=== PATIENT | female | born 1995 | race Caucasian/White ===

== ENCOUNTER 2017-05-27 21:46 | Emergency (ER) ==
[2017-05-27 21:55] VITALS: BP 109/69; TEMP 99.5; BMI 25.0
[2017-05-27] MEDS ORDERED: MOTRIN PO STA (22:06)
[2017-05-27] MEDS ORDERED: LIDOCAINE HCL 1% SDV SUBCUT STA (22:06)
[2017-05-27] MEDS ORDERED: ROCEPHIN IM STA (22:06)
--- NOTE | 2017-05-27 22:10 | ED.PDOC ---
General ED Provider: Dr. ERIC NUÑEZ Chief Complaint: Breast Pain Stated Complaint: Patient had baby last week, she is breast feeding. started noticing some pain 2-3 days, pain is gradually increasing. Time Seen by Physician: 22:08 Mode of Arrival: Walk-In Information Source: Patient Primary Care Provider: LESTER JULIO Nursing and Triage Documentation Reviewed and Agree: Yes Skin Complaint Exam - Skin/Soft Tissue Complaint/Exam Symptoms Are: Still present Timing: Constant Initial Severity: Moderate Current Severity: Moderate Character: Reports: Redness, Swelling (rt breast), Raised, Painful Aggravating: Reports: Touch Alleviating: Reports: None Associated Signs and Symptoms: Reports: Tenderness, Red streaks. Denies: Fever , Chills, Itching, Drainage, Bruising, Joint swelling Related Surgical History: Reports: None Recent Exposure to Others w/Similar Symptoms: No Skin Findings: Present: Erythema, Induration, Fluctuant mass Differential Diagnoses: Abscess, Cellulitis, Lymphadenitis Review of Systems - Review Of Systems Constitutional: Reports: No symptoms Eyes: Reports: No symptoms Ears, Nose, Mouth, Throat: Reports: No symptoms Respiratory: Reports: No symptoms Cardiac: Reports: No symptoms GI: Reports: No symptoms : Reports: No symptoms Musculoskeletal: Reports: No symptoms Skin: Reports: No symptoms Neurological: Reports: No symptoms Endocrine: Reports: No symptoms Hematologic/Lymphatic: Reports: No symptoms All Other Systems: Reviewed and Negative Past Medical History - Past Medical History Previously Healthy: Yes Endocrine: Reports: None Cardiovascular: Reports: Other (vasosyncope) Respiratory: Reports: None Hematological: Reports: None Gastrointestinal: Reports: None, GERD Genitourinary: Reports: None Neuro/Psych: Reports: Anxiety, Depression Musculoskeletal: Reports: None Cancer: Reports: None Last Menstrual Period: PT IS 8 DAYS POST Other Pertinent Past Medical History: VASOVAGAL SYNCOPE HYPOGLYCEMIA - Surgical History General Surgical History: Reports: Unknown - Family History Family History: Reports: Unknown - Social History Smoking Status: Current every day smoker, Light tobacco smoker Smoking Cessation Counseling Time: > 3 min - 10 min Hx Substance Use: No Alcohol Screening: None - Immunizations Tetanus Shot up to Date: Yes Physical Exam - Physical Exam Appearance: Ill-appearing Eyes: STEVE, EOMI, Conjunctiva clear ENT: Ears normal, Nose normal, Oropharynx normal Respiratory: Airway patent, Breath sounds clear, Breath sounds equal, Respirations nonlabored Cardiovascular: RRR, Pulses normal, No rub, No murmur GI/: Soft, Nontender, No masses, Bowel sounds normal, No Organomegaly Musculoskeletal: Normal strength, ROM intact, No edema, No calf tenderness Skin: Warm (rt breast small mass 1 o clock position. tender all over the right breast.), Dry, Normal color Neurological: Sensation intact, Motor intact, Reflexes intact, Cranial nerves intact, Alert, Oriented Psychiatric: Affect appropriate, Mood appropriate Critical Care Note - Critical Care Note Total Time (mins): 0 Course - Course Orders, Labs, Meds: Orders Category Date Time Status Ceftriaxone Sodium [Rocephin] MEDS 05/27/17 22:06 Stat 1 gm IM ONCE STA Ibuprofen [Motrin] MEDS 05/27/17 22:06 Stat 600 mg PO ONCE STA Lidocaine HCl/Pf [Lidocaine HCl 1% Sdv] MEDS 05/27/17 22:06 Stat 5 ml SUBCUT ONCE STA Medications Discontinued Medications Generic Name Dose Route Start Last Admin Trade Name Freq PRN Reason Stop Dose Admin Ceftriaxone Sodium 1 gm 05/27/17 22:06 Rocephin IM 05/27/17 22:07 ONCE STA Ibuprofen 600 mg 05/27/17 22:06 Motrin PO 05/27/17 22:07 ONCE STA Lidocaine HCl 5 ml 05/27/17 22:06 Lidocaine Hcl 1% Sdv SUBCUT 05/27/17 22:07 ONCE STA Vital Signs: Temp Pulse Resp BP Pulse Ox 05/27/17 21:46 99.5 F 107 H 18 109/69 98 Departure - Departure Time of Disposition: 22:13 Disposition: HOME SELF-CARE Discharge Problem: Mastitis Instructions: Mastitis (ED) Condition: Good Pt referred to PMD for follow-up: Yes Additional Instructions: hot compress. u/s in am. Ibuprofen prn with food. f/u in C am Prescriptions: Amoxicillin/Potassium Clav [Augmentin 500-125 mg Tab] 1 tab PO Q12HR #20 tablet Allergies/Adverse Reactions: Allergies No Known Allergies Allergy (Verified 05/27/17 21:55) Home Medications: Ambulatory Orders Amoxicillin/Potassium Clav [Augmentin 500-125 mg Tab] 1 tab PO Q12HR #20 tablet 05/27/17 Cyclobenzaprine HCl [Flexeril] 10 mg PO BID PRN 05/27/17 Pnv No.95/Ferrous Fum/Folic AC [ Vitamin Tablet] 1 each PO DAILY Disposition Discussed With: Patient
== END 2017-05-27 22:45 | disposition home or self-care (01) ==
LOC: ED 21:46
DX: N61.0 Mastitis without abscess (principal); F17.210 Nicotine dependence, cigarettes, uncomplicated
CPT/HCPCS: 96372; 99282

== ENCOUNTER 2017-10-20 16:09 | Emergency (ER) | payer OTHER ==
[2017-10-20 16:18] VITALS: BP 115/78; TEMP 98.9; BMI 24.1
--- NOTE | 2017-10-20 16:57 | ED.PDOC ---
General ED Provider: Dr. JAVAN STEWART Chief Complaint: Stated Complaint: Patient presents with complaints of lower abdominal and pelvic cramping. States she is curently -LMP 08/24/17. Is G5P 2 A2. STATES SHE HAD VAGINAL SPOTTING LAST WEEK FOR 1-2 DAYS THEN RESOLVED. NO SPOTTING TODAY. States she started having cramping to abdomen and low back at 0730 lasting until noon. Started again about 3pm. Has tried getting off feet, drinking water and a hot bath. Has not seen OB dr yet but has a 5 month old at home and will have an appt with same OB dr end of next week. Time Seen by Physician: 16:20 Mode of Arrival: Walk-In Information Source: Patient Exam Limitations: No limitations Primary Care Provider: LESTER JULIO Nursing and Triage Documentation Reviewed and Agree: Yes Reviewed sepsis parameters & appropriate labs ordered?: Yes System Inflammatory Response Syndrome: Not Applicable Sepsis Protocol: For patient's 13 years and over: Temp is 96.8 and below OR 101 and greater Pulse >90 BPM Resp >20/minute Acutely Altered Mental Status Are patient's symptoms suggestive of a new infection, such as: -Pneumonia -Skin, Soft Tissue -Endocarditis -UTI -Bone, Joint Infection -Implantable Device -Acute Abdominal Infection -Wound Infection -Meningitis -Blood Stream Catheter Infection -Unknown System 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 Denies: Dizziness, Lightheadedness, Pale, UTI symptoms, Abdominal pain, Generalized pain Related History: Reports: Irregular menses, Recent + test : 5 Para: 2 Hx Total # of Abortions (Spontaneous & Elective): 2 Ectopic Risk Factors: Reports: None Spontaneous AB Risk Factors: Reports: Increased parity Abdominal Findings: Present: None Review of Systems - Review Of Systems Constitutional: Reports: No symptoms Eyes: Reports: No symptoms Ears, Nose, Mouth, Throat: Reports: No symptoms Respiratory: Reports: No symptoms Cardiac: Reports: No symptoms GI: Reports: No symptoms : Reports: No symptoms, Other (LOWER ABDOMINAL CRAMPING) Musculoskeletal: Reports: No symptoms Skin: Reports: No symptoms Neurological: Reports: No symptoms Endocrine: Reports: No symptoms Hematologic/Lymphatic: Reports: No symptoms All Other Systems: Reviewed and Negative Past Medical History - Past Medical History Previously Healthy: Yes Endocrine: Reports: None Cardiovascular: Reports: Other (vasosyncope) Respiratory: Reports: None Hematological: Reports: None Gastrointestinal: Reports: None, GERD Genitourinary: Reports: None Neuro/Psych: Reports: Anxiety, Depression Musculoskeletal: Reports: None Cancer: Reports: None Last Menstrual Period: 08/24/17 Other Pertinent Past Medical History: VASOVAGAL SYNCOPE HYPOGLYCEMIA - Surgical History General Surgical History: Reports: Unknown - Family History Family History: Reports: Unknown - Social History Smoking Status: Current every day smoker, Light tobacco smoker Hx Substance Use: No Alcohol Screening: None Physical Exam - Physical Exam Appearance: Well-appearing, No pain distress, Well-nourished Eyes: STEVE, EOMI, Conjunctiva clear ENT: Ears normal, Nose normal, Oropharynx normal Respiratory: Airway patent, Breath sounds clear, Breath sounds equal, Respirations nonlabored Cardiovascular: RRR, Pulses normal, No rub, No murmur GI/: Soft, Nontender, No masses, Bowel sounds normal, No Organomegaly Musculoskeletal: Normal strength, ROM intact, No edema, No calf tenderness Skin: Warm, Dry, Normal color Neurological: Sensation intact, Motor intact, Reflexes intact, Cranial nerves intact, Alert, Oriented Psychiatric: Affect appropriate, Mood appropriate Critical Care Note - Critical Care Note Total Time (mins): 0 Course - Course Hematology/Chemistry: 10/20/17 17:18 10/20/17 17:18 Orders, Labs, Meds: Lab Review 10/20/17 10/20/17 10/20/17 17:18 17:18 17:18 WBC 9.62 RBC 4.11 L Hgb 12.5 Hct 36.3 L MCV 88.3 MCH 30.4 MCHC 34.4 RDW Coeff of Woody 12.9 Plt Count 231 Immature Gran % (Auto) 0.4 Neut % (Auto) 65.0 Lymph % (Auto) 24.9 Colbert % (Auto) 6.2 Eos % (Auto) 2.9 Baso % (Auto) 0.6 Immature Gran # (Auto) 0.0 Neut # (Auto) 6.2 Lymph # (Auto) 2.4 Colbert # (Auto) 0.6 Eos # (Auto) 0.3 Baso # (Auto) 0.1 Sodium 139 Potassium 4.2 Chloride 108 H Carbon Dioxide 22 Anion Gap 13.2 BUN 7 Creatinine 0.60 Estimated GFR (MDRD) 129.00 BUN/Creatinine Ratio 11.66 Glucose 84 Calcium 8.9 HCG, Quant 06642.90 Direct Antiglob Test 10/20/17 17:18 WBC RBC Hgb Hct MCV MCH MCHC RDW Coeff of Woody Plt Count Immature Gran % (Auto) Neut % (Auto) Lymph % (Auto) Colbert % (Auto) Eos % (Auto) Baso % (Auto) Immature Gran # (Auto) Neut # (Auto) Lymph # (Auto) Colbert # (Auto) Eos # (Auto) Baso # (Auto) Sodium Potassium Chloride Carbon Dioxide Anion Gap BUN Creatinine Estimated GFR (MDRD) BUN/Creatinine Ratio Glucose Calcium HCG, Quant Direct Antiglob Test Negative Orders Category Date Time Status BMP [BASIC METABOLIC PANEL] Stat LAB 10/20/17 17:18 Completed CBC W/ AUTO DIFF Stat LAB 10/20/17 17:18 Completed DIRECT MONICA Stat LAB 10/20/17 17:18 Completed HCG,QUANTITATIVE Stat LAB 10/20/17 17:18 Completed Vital Signs: Temp Pulse Resp BP Pulse Ox 10/20/17 16:10 98.9 F 99 H 18 115/78 99 Departure - Departure Time of Disposition: 18:20 Disposition: HOME SELF-CARE Discharge Problem: First trimester , Hx of vaginal bleeding, Multiparity, Rh negative state in antepartum period Instructions: (ED), Threatened Miscarriage (ED) Condition: Good Pt referred to PMD for follow-up: Yes (CALL YOUR OB TOMORROW FOR AN APPOINTMENT AMD EVALUATION ) IPMP verified?: No Additional Instructions: hcg WAS 89, 251 CONSISTENT WITH EARLY AT 5-6 WEEKS GESTATION REMAIN AT PELVIC REST 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
== END 2017-10-20 19:16 | disposition home or self-care (01) ==
LOC: ED 16:09
DX: O20.0 Threatened abortion (principal); O36.0110 Maternal care for anti-D [Rh] antibodies, first trimester, not applicable or unspecified; F17.210 Nicotine dependence, cigarettes, uncomplicated
CPT/HCPCS: 36415; 80048; 84702; 85025; 86880; 99283

== ENCOUNTER 2018-05-09 14:32 | Outpatient (CLI) | END 2018-05-09 14:49 | disposition short-term general hospital (02) | LOC: AMBL 14:32 | PROVIDERS: ATTEND Emergency Medicine | DX: O60.03 Preterm labor without delivery, third trimester (principal) ==

== ENCOUNTER 2018-05-23 08:49 | Outpatient (CLI) | END 2018-05-23 09:04 | disposition short-term general hospital (02) | LOC: AMBL 08:49 | PROVIDERS: ATTEND Emergency Medicine | DX: O80 Encounter for full-term uncomplicated delivery (principal) ==

== ENCOUNTER 2018-07-20 20:41 | Emergency (ER) ==
[2018-07-20 20:51] VITALS: BP 99/69; TEMP 98.9; BMI 22.8
--- NOTE | 2018-07-20 22:05 | CT ---
EXAM: CT abdomen and pelvis without contrast. HISTORY: Pelvic pain TECHNIQUE: Multi-slice transaxial helical CT. Coronal and sagittal reformatons were performed. COMPARISON: None FINDINGS: The heart is normal in size. Multi focal patchy airspace opacities are seen in lung bases. A a conf luent wedge-shaped consolidation is seen within the medial right lower lobe. Evaluation of the solid organs is limited without IV contrast. The gallbladder appears partly contra cted. The spleen is normal in size. No hydronephrosis or renal calculus is seen. No intrahepatic b iliary ductal dilation is seen. The pancreas and the bilateral adrenal glands appear grossly unremar kable within the confines of a noncontrast exam. The bowel is not dilated. The appendix appears normal. Urinary bladder and the uterus appear grossl y unremarkable. No definite pelvic free fluid is seen. Evaluation of the bowel is limited without o ral contrast and relatively low intra-abdominal fat. Osseous structures appear grossly unremarkable. IMPRESSION: 1. Bibasilar patchy airspace opacities and right lung base consolidation compatible with pneumonia. 2. No acute intra-abdominal findings. 3. Limited exam without contrast.
--- NOTE | 2018-07-20 22:06 | ED.PDOC ---
General ED Provider: Dr. JAVAN CARRASCO-ER Chief Complaint: Vaginal Bleeding Stated Complaint: i think i might have a tampon still in0--its draining and it stinks Time Seen by Physician: 20:45 Mode of Arrival: Walk-In Information Source: Patient Exam Limitations: No limitations Primary Care Provider: LESTER JULIO Nursing and Triage Documentation Reviewed and Agree: Yes Does patient meet sepsis criteria?: No System Inflammatory Response Syndrome: Not Applicable Sepsis Protocol: For patient's 13 years and over: Temp is 96.8 and below OR 101 and greater Pulse >90 BPM Resp >20/minute Acutely Altered Mental Status Are patient's symptoms suggestive of a new infection, such as: -Pneumonia -Skin, Soft Tissue -Endocarditis -UTI -Bone, Joint Infection -Implantable Device -Acute Abdominal Infection -Wound Infection -Meningitis -Blood Stream Catheter Infection -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 Complaint/Exam Onset/Duration: several days Symptoms Are: Still present Initial Severity: Mild Current Severity: Mild Character: Reports: Bright red Associated Signs and Symptoms: Reports: Cramping : 3 Para: 3 Patient Rh Status: Unknown Related Surgical History: Reports: None Abdominal Findings: Present: None Review of Systems - Review Of Systems Constitutional: Reports: No symptoms Eyes: Reports: No symptoms Ears, Nose, Mouth, Throat: Reports: No symptoms Respiratory: Reports: No symptoms Cardiac: Reports: No symptoms GI: Reports: No symptoms : Reports: Pain Musculoskeletal: Reports: No symptoms Skin: Reports: No symptoms Neurological: Reports: No symptoms Endocrine: Reports: No symptoms Hematologic/Lymphatic: Reports: No symptoms All Other Systems: Reviewed and Negative Past Medical History - Past Medical History Previously Healthy: Yes Endocrine: Reports: None Cardiovascular: Reports: Other (vasosyncope) Respiratory: Reports: None Hematological: Reports: None Gastrointestinal: Reports: None, GERD Genitourinary: Reports: None Neuro/Psych: Reports: Anxiety, Depression Musculoskeletal: Reports: None Cancer: Reports: None Last Menstrual Period: now Other Pertinent Past Medical History: VASOVAGAL SYNCOPE HYPOGLYCEMIA - Surgical History General Surgical History: Reports: Unknown - Family History Family History: Reports: Unknown - Social History Smoking Status: Current every day smoker, Light tobacco smoker Hx Substance Use: No Alcohol Screening: None - Immunizations Tetanus Shot up to Date: Yes Physical Exam - Physical Exam Appearance: Well-appearing, No pain distress, Well-nourished Eyes: STEVE ENT: Ears normal, Nose normal, Oropharynx normal Neck: Supple Respiratory: Airway patent, Breath sounds clear, Breath sounds equal, Respirations nonlabored Cardiovascular: RRR, Pulses normal, No rub, No murmur GI/: Soft, Mass (noted retained tampon which was easily retrieved using ring forceps) Musculoskeletal: Normal strength, ROM intact, No edema, No calf tenderness Skin: Warm, Dry, Normal color Neurological: Sensation intact, Motor intact, Reflexes intact, Cranial nerves intact, Alert, Oriented Psychiatric: Affect appropriate, Mood appropriate Procedures - Foreign Body Removal Location of Foreign Object: vaginal Foreign Object: tampon Depth of Object: superficial Type of Anesthesia: None Irrigation: No Skin Incised: No Instruments Used: Yes: Forceps Foreign Body Identified and Removed: Yes Critical Care Note - Critical Care Note Total Time (mins): 0 Course - Course Hematology/Chemistry: 07/20/18 21:14 07/20/18 21:14 Orders, Labs, Meds: Lab Review 07/20/18 07/20/18 07/20/18 21:14 21:14 21:14 WBC 11.06 H RBC 4.72 Hgb 13.6 Hct 39.8 MCV 84.3 MCH 28.8 MCHC 34.2 RDW Coeff of Woody 13.3 Plt Count 335 Immature Gran % (Auto) 0.3 Neut % (Auto) 74.8 Lymph % (Auto) 17.2 Rich % (Auto) 6.4 Eos % (Auto) 0.8 Baso % (Auto) 0.5 Immature Gran # (Auto) 0.0 Neut # (Auto) 8.3 H Lymph # (Auto) 1.9 Rich # (Auto) 0.7 Eos # (Auto) 0.1 Baso # (Auto) 0.1 Sodium 139.5 Potassium 3.72 Chloride 102.7 Carbon Dioxide 27.4 Anion Gap 13.12 BUN 8.9 Creatinine 0.79 Estimated GFR (MDRD) 93.00 BUN/Creatinine Ratio 11.26 Glucose 100.1 Calcium 9.52 Total Bilirubin 0.49 AST 27.2 ALT 27.4 Alkaline Phosphatase 79.5 Total Protein 7.97 Albumin 4.52 Globulin 3.45 Albumin/Globulin Ratio 1.31 Serum , Qual Negative Orders Category Date Time Status CBC W/ AUTO DIFF Stat LAB 07/20/18 21:14 Completed COMPREHENSIVE METABOLIC PANEL Stat LAB 07/20/18 21:14 Completed SERUM Stat LAB 07/20/18 21:14 Completed Ceftriaxone Sodium [Rocephin] MEDS 07/20/18 22:08 Stat 250 mg IM ONCE STA Lidocaine HCl/Pf [Lidocaine HCl 1% Sdv] MEDS 07/20/18 22:08 Stat 0.9 ml IM ONCE STA CT ABDOMEN/PELVIS WO CONTRAST Stat RADS 07/20/18 21:37 Taken Medications Generic Name Dose Route Start Last Admin Trade Name Re PRN Reason Stop Dose Admin Ceftriaxone Sodium 250 mg 07/20/18 22:08 Rocephin IM 07/20/18 22:09 ONCE STA Lidocaine HCl 0.9 ml 07/20/18 22:08 Lidocaine Hcl 1% Sdv IM 07/20/18 22:09 ONCE STA Vital Signs: Temp Pulse Resp BP Pulse Ox 07/20/18 20:42 98.9 F 101 H 18 99/69 98 Departure - Departure Time of Disposition: 22:06 Disposition: HOME SELF-CARE Discharge Problem: Retained tampon Qualifiers: Encounter type: initial encounter Qualified Code(s): T19.2XXA - Foreign body in vulva and vagina, initial encounter Instructions: Vaginal Foreign Body (ED) Condition: Good Pt referred to PMD for follow-up: Yes IPMP verified?: No Additional Instructions: flagyl 250mg tid x 7 days plus minocin 100mg q 12hr s #14---f/u with chocolate dipper Allergies/Adverse Reactions: Allergies No Known Allergies Allergy (Verified 10/20/17 16:18) Home Medications: Ambulatory Orders 1 [No Reported Medications] 10/20/17 Disposition Discussed With: Patient, Family
[2018-07-20] MEDS ORDERED: ROCEPHIN IM STA (22:08)
[2018-07-20] MEDS ORDERED: LIDOCAINE HCL 1% SDV IM STA (22:08)
== END 2018-07-20 22:38 | disposition home or self-care (01) ==
LOC: ED 20:41
DX: T19.2XXA Foreign body in vulva and vagina, initial encounter (principal); F17.210 Nicotine dependence, cigarettes, uncomplicated
CPT/HCPCS: 36415; 80053; 84703; 85025; 96372; 99283

== ENCOUNTER 2018-09-08 22:24 | Emergency (ER) | payer MEDICAID, OTHER ==
[2018-09-08 22:50] VITALS: BP 109/73; TEMP 98; BMI 21.4
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
== END 2018-09-09 00:59 | disposition home or self-care (01) ==
LOC: ED 22:24
DX: T14.90XA Injury, unspecified, initial encounter (principal); Y04.2XXA Assault by strike against or bumped into by another person, initial encounter; Z33.1 Pregnant state, incidental
CPT/HCPCS: 36415; 84702; 84703; 99283

== ENCOUNTER 2018-11-21 16:05 | Emergency (ER) ==
[2018-11-21 16:10] VITALS: BP 125/82; TEMP 100.3; BMI 21.8
[2018-11-21] MEDS ORDERED: MORPHINE 4 MG/ML SYRINGE IM STA (16:32)
[2018-11-21] MEDS ORDERED: ZOFRAN 4 MG/2 ML IM STA (16:32)
[2018-11-21 16:37] LABS: URINE PREGNANCY TEST NEGATIVE (NEGATIVE)
--- NOTE | 2018-11-21 17:07 | CT ---
EXAM: CT scan of the abdomen and pelvis without contrast HISTORY: right flank pain TECHNIQUE: Helical imaging of the abdomen pelvis was performed without contrast. 3 mm thin axial im ages and coronal and sagittal reconstructions were provided for interpretation. Comparison CT scan of the abdomen pelvis dated 07/20/2018. FINDINGS: The small and large bowel loops are normal caliber. No acute abnormalities are seen withi n the liver and spleen. The proximal ureters are normal size. The helical images obtained through the pelvis demonstrate a normal appearance of the urinary bladder . There is no free fluid seen within the pelvis. The appendix was not well seen. No definite infla mmatory changes are seen in the right lower quadrant. IMPRESSION: No evidence of obstructing ureteral calculi. There is no bowel obstruction or acute inflammatory change seen within the abdomen and pelvis.
--- NOTE | 2018-11-21 17:22 | ED.PDOC ---
General ED Provider: Dr. GEOFF RICHEY Chief Complaint: Back Pain Stated Complaint: back pain dysuria Time Seen by Physician: 16:16 Mode of Arrival: Walk-In Information Source: Patient Primary Care Provider: REMINGTON FELDER Nursing and Triage Documentation Reviewed and Agree: Yes Does patient meet sepsis criteria?: No System Inflammatory Response Syndrome: Not Applicable Sepsis Protocol: For patient's 13 years and over: Temp is 96.8 and below OR 101 and greater Pulse >90 BPM Resp >20/minute Acutely Altered Mental Status Are patient's symptoms suggestive of a new infection, such as: -Pneumonia -Skin, Soft Tissue -Endocarditis -UTI -Bone, Joint Infection -Implantable Device -Acute Abdominal Infection -Wound Infection -Meningitis -Blood Stream Catheter Infection -Unknown Musculoskeletal Complaint Exam - Back Pain Complaint/Exam Mechanism of Injury: Reports: No known trauma Onset/Duration: today Symptoms Are: Still present Timing: Intermittent Initial Severity: Moderate Current Severity: Moderate Location: Reports: Discrete Character: Reports: Aching Alleviating: Reports: None Associated Signs and Symptoms: Reports: Flank pain. Denies: Swelling, Redness, Bruising, Fever, Weakness, Numbness, Tingling, Abdominal pain, Bladder incontinence, Bowel incontinence, Weight loss, Pain with weight bearing TAD Risk Factors: Reports: None AAA Risk Factors: Reports: None Cauda Equina Risk Factors: Reports: None Epidural Abcess Risk Factors: Reports: None Related Surgical History: Reports: None Focal Tenderness: No Paraspinal Muscle Tenderness: No Paraspinal Muscle Spasm: No SLR Test: Right Negative, Left Negative Hip Motion Testing Pain: Right Negative, Left Negative Focal Weakness: Present: None Focal Sensory Loss: Present: None Gait: Present: Normal Differential Diagnoses: Renal Colic (uti), Strain, Sprain Review of Systems - Review Of Systems Constitutional: Reports: No symptoms Eyes: Reports: No symptoms Ears, Nose, Mouth, Throat: Reports: No symptoms Respiratory: Reports: No symptoms Cardiac: Reports: No symptoms GI: Reports: No symptoms : Reports: Dysuria, Flank pain Musculoskeletal: Reports: Back pain Skin: Reports: No symptoms Neurological: Reports: No symptoms Endocrine: Reports: No symptoms Hematologic/Lymphatic: Reports: No symptoms All Other Systems: Reviewed and Negative Past Medical History - Past Medical History Previously Healthy: Yes Endocrine: Reports: None Cardiovascular: Reports: Other (vasosyncope) Respiratory: Reports: None Hematological: Reports: None Gastrointestinal: Reports: None, GERD Genitourinary: Reports: None Neuro/Psych: Reports: Anxiety, Depression Musculoskeletal: Reports: None Cancer: Reports: None Last Menstrual Period: 11/21/18 Other Pertinent Past Medical History: VASOVAGAL SYNCOPE HYPOGLYCEMIA - Surgical History General Surgical History: Reports: Unknown - Family History Family History: Reports: Unknown - Social History Smoking Status: Current every day smoker, Light tobacco smoker Hx Substance Use: Yes (marijuana) Alcohol Screening: None - Immunizations Tetanus Shot up to Date: Yes Physical Exam - Physical Exam Appearance: Well-appearing, No pain distress, Well-nourished Eyes: STEVE, EOMI, Conjunctiva clear ENT: Ears normal, Nose normal, Oropharynx normal Respiratory: Airway patent, Breath sounds clear, Breath sounds equal, Respirations nonlabored Cardiovascular: RRR, Pulses normal, No rub, No murmur GI/: Soft, Nontender, No masses, Bowel sounds normal, No Organomegaly Musculoskeletal: Normal strength, ROM intact, No edema, No calf tenderness Skin: Warm, Dry, Normal color Neurological: Sensation intact, Motor intact, Reflexes intact, Cranial nerves intact, Alert, Oriented Psychiatric: Affect appropriate, Mood appropriate Interpretation - Radiology Interpretation Radiology Interpretation By: Radiologist Radiology Results: No acute changes Exam Interpreted: CT Scan Critical Care Note - Critical Care Note Total Time (mins): 0 Course - Course Hematology/Chemistry: 11/21/18 16:36 11/21/18 16:36 Orders, Labs, Meds: Lab Review 11/21/18 11/21/18 11/21/18 16:20 16:20 16:36 WBC 10.46 H RBC 4.43 Hgb 13.2 Hct 39.0 MCV 88.0 MCH 29.8 MCHC 33.8 RDW Coeff of Woody 12.9 Plt Count 224 Immature Gran % (Auto) 0.3 Neut % (Auto) 83.9 Lymph % (Auto) 10.5 [place] % (Auto) 3.3 Eos % (Auto) 1.6 Baso % (Auto) 0.4 Immature Gran # (Auto) 0.0 Neut # (Auto) 8.8 H Lymph # (Auto) 1.1 [place] # (Auto) 0.3 L Eos # (Auto) 0.2 Baso # (Auto) 0.0 Sodium Potassium Chloride Carbon Dioxide Anion Gap BUN Creatinine Estimated GFR (MDRD) BUN/Creatinine Ratio Glucose Calcium Total Bilirubin AST ALT Alkaline Phosphatase Total Protein Albumin Globulin Albumin/Globulin Ratio Urine Color Yellow Urine Clarity Cloudy Urine pH 7.0 Ur Specific [place] 1.020 Urine Protein 2+ Urine Glucose (UA) Negative Urine Ketones Negative Urine Blood 2+ Urine Nitrite Positive Urine Bilirubin Negative Urine Urobilinogen 0.2 Ur Leukocyte Esterase 2+ Urine Microscopic RBC 5-10 Urine Microscopic WBC 30-50 Ur Squamous Epith Cells 5-10 Urine Bacteria 3+ Urine Test Negative 11/21/18 16:36 WBC RBC Hgb Hct MCV MCH MCHC RDW Coeff of Woody Plt Count Immature Gran % (Auto) Neut % (Auto) Lymph % (Auto) [place] % (Auto) Eos % (Auto) Baso % (Auto) Immature Gran # (Auto) Neut # (Auto) Lymph # (Auto) [place] # (Auto) Eos # (Auto) Baso # (Auto) Sodium 138.9 Potassium 3.95 Chloride 103.1 Carbon Dioxide 27.1 Anion Gap 12.65 BUN 9.6 Creatinine 0.67 Estimated GFR (MDRD) 111.00 BUN/Creatinine Ratio 14.32 Glucose 98.3 Calcium 9.14 Total Bilirubin 0.39 AST 18.1 ALT 18.8 Alkaline Phosphatase 75.5 Total Protein 7.22 Albumin 4.52 Globulin 2.70 Albumin/Globulin Ratio 1.67 Urine Color Urine Clarity Urine pH Ur Specific [place] Urine Protein Urine Glucose (UA) Urine Ketones Urine Blood Urine Nitrite Urine Bilirubin Urine Urobilinogen Ur Leukocyte Esterase Urine Microscopic RBC Urine Microscopic WBC Ur Squamous Epith Cells Urine Bacteria Urine Test Orders Category Date Time Status CBC W/ AUTO DIFF Stat LAB 11/21/18 16:36 Completed COMPREHENSIVE METABOLIC PANEL Stat LAB 11/21/18 16:36 Completed URINALYSIS C & S IF INDICATED Stat LAB 11/21/18 16:20 Completed URINE CULTURE Stat LAB 11/21/18 16:20 Received URINE Stat LAB 11/21/18 16:20 Completed Morphine Sulfate [Morphine 4 mg/ml Syringe] MEDS 11/21/18 16:32 Discontinued 4 mg IM ONCE STA Ondansetron HCl/Pf [Zofran 4 mg/2 ml] MEDS 11/21/18 16:32 Discontinued 4 mg IM ONCE STA CT ABD/PEL WO RENAL STONE PROT Stat RADS 11/21/18 16:33 Completed Medications Discontinued Medications Generic Name Dose Route Start Last Admin Trade Name Freq PRN Reason Stop Dose Admin Morphine Sulfate 4 mg 11/21/18 16:32 11/21/18 16:55 Morphine 4 Mg/Ml Syringe IM 11/21/18 16:33 4 mg ONCE STA Administration Ondansetron HCl 4 mg 11/21/18 16:32 11/21/18 16:54 Zofran 4 Mg/2 Ml IM 11/21/18 16:33 4 mg ONCE STA Administration Vital Signs: Temp Pulse Resp BP Pulse Ox 11/21/18 16:06 100.3 F H 115 H 18 125/82 97 Departure - Departure Time of Disposition: 17:22 Disposition: HOME SELF-CARE Discharge Problem: Backache UTI (urinary tract infection) Qualifiers: Urinary tract infection type: site unspecified Instructions: Dysuria (ED), Urinary Tract Infection in Women (ED) Condition: Good Pt referred to PMD for follow-up: Yes IPMP verified?: No Additional Instructions: Please call your Family Physician as soon as possible to schedule a follow-up appointment. Prescriptions: Sulfamethoxazole/Trimethoprim [Bactrim Ds 800/160 mg] 1 tab PO Q12HR #10 tablet Hydrocodone/Acetaminophen [[place] 10-325 Tablet] 1 each PO 2-3XD #7 tablet Allergies/Adverse Reactions: Allergies No Known Allergies Allergy (Verified 11/21/18 16:08) Home Medications: Ambulatory Orders Hydrocodone/Acetaminophen [[place] 10-325 Tablet] 1 each PO 2-3XD #7 tablet Sulfamethoxazole/Trimethoprim [Bactrim Ds 800/160 mg] 1 tab PO Q12HR #10 tablet 11/21/18
== END 2018-11-21 17:27 | disposition home or self-care (01) ==
LOC: ED 16:05
DX: N39.0 Urinary tract infection, site not specified (principal); F17.210 Nicotine dependence, cigarettes, uncomplicated
CPT/HCPCS: 36415; 74176; 80053; 81001; 81025; 85025; 87086; 87186; 96372; 99283